=== PATIENT | male | born 1960 | race Caucasian/White ===

== ENCOUNTER 2019-10-04 08:40 | Outpatient (CLI) | payer OTHER | END 2019-10-04 23:59 | disposition home or self-care (01) | LOC: STAR 08:40 | PROVIDERS: ATTEND Surgery | DX: Z02.9 Encounter for administrative examinations, unspecified (principal) ==

== ENCOUNTER 2019-10-08 10:54 | Day surgery (SDC) | payer OTHER ==
[~2019-10-08] VITALS: Ht 190.5 cm; Wt 91.4 kg
[~2019-10-08 10:54] MED LIST: DEXAMETHASONE 4 MG/ML, 1ML ONE; FENTANYL PF 250 MCG/5ML ONE; GLYCOPYRROLATE 0.2MG/1ML, 5ML ONE; LIDOCAINE-MPF 2% ,5ML ONE; MIDAZOLAM 1 MG/ML, 2ML ONE; PROPOFOL 10 MG/ML, 20ML ONE; ROCURONIUM 10MG/ML,5ML ONE
[2019-10-08] MEDS ORDERED: LACTATED RINGERS 1,000 ML IV SCH (11:16)
[2019-10-08] MEDS ORDERED: LISI-167 PO (11:22)
[2019-10-08] MEDS ORDERED: CHLORHEXIDINE 15 ML UDC MM ONE (11:30)
[2019-10-08] MEDS ORDERED: BUPIVACAINE/PF-EPI 0.5% 1:200K ONE (12:04)
[2019-10-08] MEDS ORDERED: CEFAZOLIN 1,000 MG ONE (13:39)
[2019-10-08] MEDS ORDERED: KETOROLAC 30 MG/1 ML ONE (13:39)
[2019-10-08] MEDS: FENTANYL PF 100 MCG/2ML IV PRN ×2 (14:11→14:22)
[2019-10-08] MEDS ORDERED: LABETALOL 5MG/ML, 20ML IV PRN (14:30)
[2019-10-08] MEDS ORDERED: OXYcodone 5 MG/5 ML ORAL.SOL UDC PO PRN (14:30)
[2019-10-08] MEDS ORDERED: MEPERIDINE/PF 25MG/0.5ML IVPush PRN (14:30)
[2019-10-08] MEDS ORDERED: ONDANSETRON 2MG/ML, 2ML IVPush PRN (14:30)
[2019-10-08] MEDS ORDERED: hydrALAzine 20 MG/ML, 1ML IV PRN (14:30)
[2019-10-08] MEDS ORDERED: PROMETHAZINE 25 MG/ML, 1ML IVPush PRN (14:30)
[2019-10-08] MEDS ORDERED: HYDROmorphone 1 MG/ML, 1ML INJ IVPush PRN (14:30)
[2019-10-08] MEDS ORDERED: HYDROmorphone 1 MG/ML, 1ML INJ ONE (14:37)
[2019-10-08] MEDS ORDERED: LABETALOL 5MG/ML, 20ML ONE (20:13)
[2019-10-08] MEDS ORDERED: FENTANYL PF 100 MCG/2ML ONE (22:18)
[2019-10-08] MEDS ORDERED: OXYcodone 5 MG/5 ML ORAL.SOL UDC ONE (22:19)
== END 2019-10-08 17:07 | disposition home or self-care (01) ==
LOC: OUT 10:54
PROVIDERS: ATTEND Surgery
DX: K40.90 Unilateral inguinal hernia, without obstruction or gangrene, not specified as recurrent (principal); Z11.59 Encounter for screening for other viral diseases; I10 Essential (primary) hypertension; F12.90 Cannabis use, unspecified, uncomplicated; Z72.89 Other problems related to lifestyle; Z98.890 Other specified postprocedural states; Z79.899 Other long term (current) drug therapy; Z87.891 Personal history of nicotine dependence; Z82.49 Family history of ischemic heart disease and other diseases of the circulatory system
CPT/HCPCS: 36415; 49650; 87635; C1781; J0690; J1100; J1170; J1885; J2250; J2704; J3010; J7120